=== PATIENT | female | born 1990 | race Caucasian/White ===

== ENCOUNTER 2016-10-11 19:24 | Emergency (ER) | payer MEDICAID ==
[2016-10-11 19:34] VITALS: BP 164/114; PULSE 93; RESP 18; TEMP 99; O2SAT 95
[2016-10-11] MEDS ORDERED: HYDROCOD/APAP 5/325 PREPACK#6 BTL TAKEHOME ONE (20:35)
--- NOTE | 2016-10-11 20:36 | EDPHY ---
H & P Time Seen by Provider: 10/11/16 20:26 HPI/ROS: CHIEF COMPLAINT: Dental pain, requesting lab work HISTORY OF PRESENT ILLNESS: The patient is a 25 y/o female complaining of ongoing mouth pain after recent dental work. She had a tooth pulled on Saturday, , and reports the dentist broke the tooth and she now requires oral surgery to get it fixed. She has only one kidney and reports the oral surgeon will not schedule her for surgery until she has blood work performed. She denies fever. Past Medical/Surgical History: 1. One kidney 2. Recent tooth extraction Social History: Nonsmoker. [facility] - Dr. Mtz in [place] Recent medicaid patient, no current PCP Smoking Status: Never smoked Physical Exam: General Appearance: Alert, no distress, tearful ENT, Mouth: Mucous membranes moist. Right lower teeth - recent dental extraction , site is well-healing, no swelling or drainage. Left side has packing in place. Respiratory: No respiratory distress Neurological: A&O, nonfocal, normal gait Skin: Warm and dry, no rash, no facial swelling or erythema Psychiatric: Mood and affect normal Constitutional: Initial Vital Signs Temperature (C) 37.2 C 10/11/16 19:31 Heart Rate 93 10/11/16 19:31 Respiratory Rate 18 10/11/16 19:31 Blood Pressure 164/114 H 10/11/16 19:31 O2 Sat (%) 95 10/11/16 19:31 O2 Delivery Mode Room Air Allergies/Adverse Reactions: No Known Allergies Allergy (Verified 10/11/16 19:34) Home Medications: Medication Instructions Recorded Albuterol Hfa Anes Only [Proair 2 puffs IH Q4 PRN #1 mdi 08/12/15 Hfa Icu (*)] Azithromycin [Zithromax] 250 mg PO DAILY #6 tab 08/12/15 Fluticasone Hfa 220 Mcg [Flovent 2 puffs IH DAILY #1 mdi 08/12/15 220 MCG Hfa MDI (*)] Hydrocodone/APAP 5/325 [[place] 1 - 2 tab PO Q4H PRN #15 tab 10/11/16 5/325] Medical Decision Making ED Course/Re-evaluation: This is a 25 y/o female who presents requesting lab work so she can be scheduled for a dental surgery as soon as possible. Her dentist broke a tooth while trying to extract it on Saturday and told her she would need an oral surgeon to correct it. Due to her recent Medicaid status, she has had difficulty coordinating care for this. She has been referred to an oral surgeon in [place], but they will not schedule her until she gets lab work performed for kidney function. She continues to have a lot of pain, but is not requesting pain mediation. No sign of infection on exam. CBC, CHEM ordered. Patient will wait in the waiting room to get a printout of her results. [facility] of [place] and [place] script written to use as needed for pain. She is comfortable with this plan. Departure - Departure Disposition: Home, Routine, Self-Care Clinical Impression: Pain, dental Condition: Good Instructions: Tooth Extraction (ED) Additional Instructions: 1. Follow up with the surgeon you've been referred to tomorrow. 2. Use [place] as prescribed when needed for pain. 3. You are welcome to wait in the waiting room for your labs to result so you can take a copy with you to your surgeon. Referrals: NONE *PRIMARY CARE P,. [Primary Care Provider] - As per Instructions Prescriptions: Hydrocodone/APAP 5/325 [[place] 5/325] 1 - 2 tab PO Q4H PRN #15 tab PRN Reason: Pain, Moderate Report Scribed for: Nancy Smith Report Scribed by: Do Evans Date of Report: 10/11/16 Time of Report: 20:36 Physician Review and Approval Statement: 10/11/16 20:36 Portions of this note were transcribed by a medical technical writer. I personally performed a history, physical exam, medical decision making, and confirmed accuracy of information the transcribed note.
[2016-10-11 21:16] LABS: ANION GAP 11 mEq/L (8-16); CALCIUM 9.8 mg/dL (8.5-10.4); CARBON DIOXIDE 27 mEq/l (22-31); CHLORIDE 103 mEq/L (97-110); CREATININE 0.7 mg/dL (0.6-1.0); GLOMERULAR FILTRATION RATE > 60; GLUCOSE 90 mg/dL (70-100); POTASSIUM 4.3 mEq/L (3.5-5.2); SODIUM 141 mEq/L (134-144)
== END 2016-10-11 20:52 | disposition home or self-care (01) ==
DX: K08.89 Other specified disorders of teeth and supporting structures (principal)

== ENCOUNTER 2017-02-16 22:24 | Emergency (ER) | payer MEDICAID, OTHER ==
[2017-02-16] MEDS ORDERED: PROPARACAINE 0.5% 15 ML OPHT DROP ONE (22:28)
[2017-02-16] MEDS ORDERED: FLUORESCEIN SODIUM 1 MG STRIP OP ONE (22:45)
[2017-02-16 22:46] VITALS: RESP 16; TEMP 98.6
[2017-02-16] MEDS ORDERED: PROPARACAINE 0.5% 15 ML OPHT DROP OP ONE (22:50)
[2017-02-16] MEDS ORDERED: HYDROCOD/APAP 5/325 PREPACK#6 BTL TAKEHOME ONE (23:06)
--- NOTE | 2017-02-16 23:06 | EDPHY ---
H & P Time Seen by Provider: 02/16/17 22:54 HPI/ROS: CHIEF COMPLAINT: pain to the left eye, contacted with a lable at work HISTORY OF PRESENT ILLNESS: 26-year-old otherwise healthy woman was at work at around 5:30 p.m. and she sustained an injury to the left eye. She was the labile and as she toward off it came out and struck her in the left eye area. She complains of being hit on the globe itself. She denies any discharge per se nor material coming from the wound itself. It hurt mild to moderately at 1st. She was left work early. Once home she took a nap as was achy. When she woke up was quite a bit worse thus she presented here approximately 10 minutes ago. She is healthy eyes in general in the 1st place. No prior surgeries. No contact lenses. No medications drops Contact Lenses none Eye drops Eye surgery Pt queried and denies: prior hx of substance abuse family history of substance abuse or current or prior psychiatric history. ROS: Constitutional - no fevers or chills Eyes - no diplopia, though she does report some blurred vision, having difficulty keeping the left eye open ENT - no earache, change in hearing, difficulty swallowing, sore throat Smoking Status: Never smoked Physical Exam: General Appearance: Alert, no distress. Afebrile. Normal phonation. No respiratory distress. Gaurding gaze when lights introduced. Though photosensitive, not truly photophobic. Having difficulty keep the left eye open until proparacaine is instilled. Thereafter, she is able to cooperate and give us a visual acuity. Eyes: Pupils equal and round no pallor or injection. No icterus. Lids without changes. No ptosis. Moderate erythema of bulbar and eyelid conjunctival surface without flare or limbal predominance. No spasm or pain with light. No preauricular nodes. There is an irregularity to the lower nasal >> temporal quadrant of the cornea. Eyelids are not swollen. No opacification of the cornea. Slit Lamp: Deep, clear quiet anterior chamber without cells or flare. No hyphema or hypopion or ulcer Flourescein: Uptake noted. Approx 5% of surface tear, ragged edges. Neck: No adenopathy. Supple. Neurological: Ox3. Gait nl. Skin: Warm and dry, no rashes. Psych: Calm. Constitutional: Initial Vital Signs Temperature (C) 37 C 02/16/17 22:40 Heart Rate 80 02/16/17 22:40 Respiratory Rate 14 02/16/17 22:40 Blood Pressure 135/88 H 02/16/17 22:40 O2 Sat (%) 97 02/16/17 22:40 O2 Delivery Mode Room Air Allergies/Adverse Reactions: No Known Allergies Allergy (Verified 02/16/17 22:38) Home Medications: Medication Instructions Recorded Albuterol Hfa Anes Only [Proair 2 puffs IH Q4 PRN #1 mdi 08/12/15 Hfa Icu (*)] Celexa 02/16/17 Lisinopril 02/16/17 Medical Decision Making ED Course/Re-evaluation: Diagnostic considerations include, but are not limited to, the following: Corneal laceration, corneal abrasion, Corneal FB, conjunctival foreign body, allergic conjunctivitis, bacterial conjunctivitis, viral conjunctivitis, chemical conjunctivitis. The surface tear is evident on clinical exam. Would expected to heal well in the next 36 hours. Here she was given erythromycin ointment as well as Cyclogyl 1% 1 drop as mydriatic to help ease the spasm of the ciliary muscle. - Data Points Medications Given: Discontinued Medications Hydrocodone Bitart/Acetaminophen ([place] 5/325mg [facility]#6) 1 btl TAKEHOME EDNOW ONE Stop: 02/16/17 23:07 Last Admin: 02/16/17 23:58 Dose: 1 btl Cyclopentolate HCl (Cyclogyl 1%) 1 drops OP EDNOW ONE Stop: 02/16/17 23:49 Last Admin: 02/16/17 23:59 Dose: 1 drop Erythromycin (Erythromycin 0.5%) 1 magy EACHEYE ONCE ONE Stop: 02/16/17 23:31 Last Admin: 02/16/17 23:59 Dose: 1 magy Ibuprofen (Motrin) 600 mg PO EDNOW ONE Stop: 02/16/17 23:31 Last Admin: 02/16/17 23:59 Dose: 600 mg Proparacaine HCl (Alcaine 0.5%) 1 drops OP EDNOW ONE Stop: 02/16/17 22:51 Last Admin: 02/16/17 23:00 Dose: 2 drop Departure - Departure Disposition: Home, Routine, Self-Care Clinical Impression: Corneal abrasion Qualifiers: Encounter type: initial encounter Laterality: left Qualified Code(s): S05.02XA - Injury of conjunctiva and corneal abrasion without foreign body, left eye, initial encounter Condition: Good Instructions: Corneal Abrasion (ED) Additional Instructions: Cool compresses will help. Be careful, taking the [place] you may get constipated. Try Metamucil or Colace. You were given [place] here in the ER. It is important you do not drive or drink or worker machinery for at least 24 hours. You may take ibuprofen along with the [place] for the pain. They work well together Apply the erythromycin ointment 4 times daily until checked by the follow-up physicians Saturday, 36 hours from now should feel markedly better. If not, then contact Ophthalmology as referred below. However, sometime Saturday, Saturday should follow up with Ophthalmology and/or workers comp. Referrals: NONE *PRIMARY CARE P,. [Primary Care Provider] - As per Instructions Rodrigo Laguna MD [Medical Doctor] - As per Instructions Stand Alone Forms: Work Comp Follow Up, Work Excuse
[2017-02-16] MEDS ORDERED: IBUPROFEN 600 MG TAB PO ONE (23:30)
[2017-02-16] MEDS ORDERED: ERYTHROMYCIN 0.5% 1 GM OPHT.OINT EACHEYE ONE (23:30)
[2017-02-16] MEDS ORDERED: Cyclopentolate 1% 15 ML OPHT.BTL ONE (23:47)
[2017-02-16] MEDS ORDERED: Cyclopentolate 1% 15 ML OPHT.BTL OP ONE (23:48)
[2017-02-17 00:57] VITALS: BP 136/82; PULSE 84; O2SAT 95
== END 2017-02-17 00:10 | disposition home or self-care (01) ==
LOC: CED 22:24
DX: S05.02XA Injury of conjunctiva and corneal abrasion without foreign body, left eye, initial encounter (principal); W22.8XXA Striking against or struck by other objects, initial encounter; Y92.69 Other specified industrial and construction area as the place of occurrence of the external cause; Y99.0 Civilian activity done for income or pay; Y93.89 Activity, other specified